=== PATIENT | male | born 1990 | race Hispanic/Latino ===

== ENCOUNTER 2018-06-07 13:56 | Emergency (ER) | payer OTHER ==
[~2018-06-07] VITALS: Ht 177.8 cm; Wt 93.4 kg
[2018-06-07 16:12] LABS: ABSOLUTE BASOPHIL COUNT 0 /CUMM (0.0-0.2); ABSOLUTE EOSINOPHIL COUNT 0 /CUMM (0.0-0.7); ABSOLUTE LYMPH COUNT 0.8 /CUMM (1.2-3.4); ABSOLUTE MONOCYTE COUNT 0.6 /CUMM (0.10-0.60); BASOPHIL % 0.3 % (0.0-2.0); EOSINOPHIL % 0.3 % (0-5); GRANULOCYTE % 86.1 % (42.2-75.2); HEMATOCRIT 46.1 % (42-52); MEAN CORPUSCULAR HGB 29.2 PG (27.0-31.0); MEAN CORPUSCULAR HGB CONC 34.2 G/DL (33.0-37.0); MEAN CORPUSCULAR VOLUME 85.5 FL (80.0-94.0); MEAN PLATELET VOLUME 10.9 FL (7.4-10.4); PLATELET COUNT 210 /CUMM (130-400); RBC DISTRIBUTION WIDTH 13.4 % (11.5-14.5); RED BLOOD CELL CT 5.39 /CUMM (4.70-6.10); WHITE BLOOD CELL COUNT 10.5 /CUMM (4.8-10.8)
--- NOTE | 2018-06-07 16:16 | ED GENERAL ADULT ---
History of Present Illness General Chief Complaint: General Adult Stated Complaint: BURN IN STOMMACH LIGHT HEADED, "MY BODY'S HEAVY" Source: patient Exam Limitations: no limitations Vital Signs & Intake/Output Vital Signs & Intake/Output Vital Signs Date Time Temp Pulse Resp B/P B/P Pulse O2 O2 Flow FiO2 Mean Ox Delivery Rate 06/071 Room Air 06/07 1841 99.0 90 16 134/80 97 Room Air 06/07 1637 99.6 92 18 135/83 96 Room Air 06/07 1418 98.9 98 20 135/81 97 Room Air Allergies Coded Allergies: No Known Allergies (06/07/18) Reconcile Medications Omeprazole 20 MG TABLET.DR 1 TAB PO DAILY GERD Triage Note: PT TO ED C/O BURNING IN STOMACH AND LIGHT HEADED SINCE THIS AM. DENIES N/V/D. Triage Nurses Notes Reviewed? yes Onset: Gradual Duration: hour(s): Timing: constant HPI: 27 y/o otherwise healthy male presenting with abdominal pain 12 hours. Patient reports a burning nonradiating epigastric pain that began early this morning while he was waiting in line [place] the [employer]. Endorses mild associated nausea, but no vomiting. Pain has no worsening or alleviating factors. Has not tried anything for pain relief. On average patient drinks 10 beers per weekend, that states he had a heavy EtOH use this past weekend. Denies any drug use. No NSAID use. Denies fevers, chest pain, shortness of breath, vomiting, diarrhea, melena, bloody stools, dysuria. (Trista Watters) Past History Travel History Traveled to [place] past 21 day No Medical History Any Pertinent Medical History? none Surgical History Surgical History: non-contributory Psychosocial History Tobacco Use: Never used ETOH Use: denies use Illicit Drug Use: denies illicit drug use Family History Hx Contributory? No (Trista Watters) Review of Systems Review of Systems Constitutional: Reports: no symptoms. EENTM: Reports: no symptoms. Respiratory: Reports: no symptoms. Cardiovascular: Reports: no symptoms. GI: Reports: see HPI. Genitourinary: Reports: no symptoms. Musculoskeletal: Reports: no symptoms. Skin: Reports: no symptoms. Neurological/Psychological: Reports: no symptoms. Hematologic/Endocrine: Reports: no symptoms. Immunologic/Allergic: Reports: no symptoms. All Other Systems: Reviewed and Negative (Trista Watters) Physical Exam Physical Exam General Appearance: well developed/nourished, no apparent distress, alert, awake , comfortable Head: atraumatic, normal appearance Eyes: Bilateral: normal appearance. Neck: normal inspection Respiratory: normal breath sounds, lungs clear Cardiovascular: regular rate/rhythm Gastrointestinal: soft, non-tender Back: normal inspection Extremities: normal inspection Neurologic/Psych: awake, alert, oriented x 3, normal gait, normal mood/affect Skin: intact, normal color, warm/dry Core Measures ACS in differential dx? No CVA/TIA Diagnosis: No Sepsis Present: No Sepsis Focused Exam Completed? No (Trista Watters) Progress Differential Diagnoses I considered the following diagnoses in my evaluation of the patient: [GERD vs gastritis vs PUD vs pancreatitis vs biliary] Plan of Care: Orders Procedure Date/time Status URINALYSIS 06/07 1506 Complete LIPASE 06/07 1506 Complete COMPREHENSIVE METABOLIC PANEL 06/07 1506 Complete CBC WITHOUT DIFFERENTIAL 06/07 1506 Complete Laboratory Tests 06/07/18 1558: Urine Color YEL, Urine Clarity HAZY H, Urine pH 6.0, Ur Specific [place] >= 1.030, Urine Protein 30 H, Urine Ketones NEG, Urine Nitrite NEG, Urine Bilirubin NEG, Urine Urobilinogen 0.2, Ur Leukocyte Esterase NEG, Ur Microscopic SEDIMENT EXAMINED, Urine RBC RARE, Urine WBC RARE, Ur Epithelial Cells RARE, Urine Bacteria RARE H, Urine Hemoglobin NEG, Urine Glucose NEG 06/07/18 1557: Anion Gap 14, Estimated GFR > 60, BUN/Creatinine Ratio 21.3, Glucose 112 H, Calcium 9.9, Total Bilirubin 0.5, AST 33, ALT 42, Alkaline Phosphatase 72, Total Protein 7.9, Albumin 4.8, Globulin 3.1, Albumin/Globulin Ratio 1.5, Lipase 210, CBC w Diff NO MAN DIFF REQ, RBC 5.39, MCV 85.5, MCH 29.2, MCHC 34.2, RDW 13.4, MPV 10.9 H, Gran % 86.1 H, Lymphocytes % 7.9 L, Monocytes % 5.4, Eosinophils % 0.3, Basophils % 0.3, Absolute Granulocytes 9.0 H, Absolute Lymphocytes 0.8 L, Absolute Monocytes 0.6, Absolute Eosinophils 0, Absolute Basophils 0 Labs unremarkable. Patient reports significant pain relief after GI cocktail and Pepcid. Likely with GERD versus gastritis versus peptic ulcer disease. His symptoms are likely secondary to his recent heavy EtOH use. Given Rx omeprazole , counseled on dietary changes and supportive care. Will follow up with his PMD and given strict return precautions. Initial ED EKG: none (Trista Watters) Departure Departure Disposition: HOME OR SELF CARE Condition: Stable Clinical Impression Primary Impression: Epigastric pain Referrals: Shira Mondragon APRN (PCP/Family) Additional Instructions: Take omeprazole as prescribed. Use Maalox [id number] for breakthrough pain. Follow-up with your primary care provider for reevaluation. Return to the emergency department for any new or worsening symptoms. Departure Forms: Customer Survey General Discharge Information Prescriptions: Current Visit Scripts Omeprazole 1 TAB PO DAILY #30 TAB (Trista Watters) PA/SECONDS GRADER Co-Sign Statement Statement: ED Attending supervision documentation- [] I saw and evaluated the patient. I have also reviewed all the pertinent lab results and diagnostic results. I agree with the findings and the plan of care as documented in the PA's/SECONDS GRADER's documentation. [x] I have reviewed the ED Record and agree with the PA's/SECONDS GRADER's documentation. [] Additions or exceptions (if any) to the PAs/SECONDS GRADER's note and plan are summarized below: [] (Refugio Roach DO) Critical Care Note Critical Care Note Critical Care Time: non-applicable (Trista Watters)
[2018-06-07] MEDS ORDERED: OMEPRAZOLE20 M3 PO (17:56)
[2018-06-07 18:41] VITALS: BP 134/80
== END 2018-06-07 18:42 ==
LOC: ERH 13:56
PROVIDERS: Physician Assistant Medical
DX: R10.13 Epigastric pain (principal)
CPT/HCPCS: 81001